=== PATIENT | female | born 2000 | race African-American/Black ===

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

== ENCOUNTER 2022-12-03 10:29 | Emergency (ER) | payer OTHER, SELFPAY ==
[2022-12-03 11:58] LABS: #Monocytes 0.9 thou/uL (0.11-0.59); #Neutrophils 14.4 thou/uL (1.40-6.50); %Basophils 0.2 % (0.0-1.0); %Monocytes 5.6 % (0.0-4.0); %Neutrophils 87.5 % (31.0-61.0); Hematocrit 26.1 % (36.0-47.0); Hemoglobin 7.1 g/dL (12.0-16.0); Mean Corpuscular HGB CONC 27.2 g/dL (32.0-36.0); Mean Corpuscular Volume 69.8 fl (78.0-98.0); Platelet Count 152 10x3/uL (130-400); RBC Distribution Width 33.6 % (11.5-14.5); Red Blood Cell (RBC) Count 3.74 mill/uL (4.00-5.20); White Blood Cell (WBC) Count 16.4 10x3/uL (4.8-10.8)
[2022-12-03 12:23] LABS: ALT (SGPT) 9 U/L (8-55); AST (SGOT) 24 U/L (5-34); Albumin 4.7 g/dL (3.5-5.0); Alkaline Phosphatase 76 U/L (40-100); Anion Gap 17 mmol/L (10-20); BUN (Urea Nitrogen) 6 mg/dL (7.0-18.7); Bilirubin, Total 0.3 mg/dL (0.2-1.2); Calc. Creatinine Clearance 0 mL/min (70-130); Calcium 9.6 mg/dL (7.8-10.44); Carbon Dioxide 19 mmol/L (22-29); Chloride 103 mmol/L (98-107); Estimated GFR 127; Globulin 4.3 g/dL (2.4-3.5); Glucose 86 mg/dL (70-105); Potassium 3.5 mmol/L (3.5-5.1); Sodium 135 mmol/L (136-145)
[2022-12-03 12:47] LABS: Anisocytosis MODERATE=16-30 cells HPF (0-5); CellaVision Operator ID LAB.MJL; Elliptocytes SLIGHT = 2-5 cells HPF (0-1); Hypochromia MODERATE=16-30 cells HPF (0-5); Microcytosis SLIGHT = 6-15 cells HPF (0-5); Ovalocytes SLIGHT = 2-5 cells HPF (0-1); Platelet Adequacy Comment Platelets Normal; Poikilocytosis MODERATE=16-30 cells HPF (0-5); Polychromasia MODERATE = 3-4 cells HPF (0-2); Reflex for Review?? YES; Schistocytes SLIGHT = 2-5 cells HPF (0-1); Tear Drops SLIGHT = 2-5 cells HPF (0-1)
[2022-12-03 13:52] LABS: BHCG - Serum Negative (NEGATIVE); Pregs Control Background? CLEAR/WHITE (CLR/WHITE); Pregs Control Bar Appear? YES (CONTROL BAR)
[2022-12-03 14:08] LABS: Bilirubin Negative (Negative); Blood, Urine Large (Negative); Glucose, Urine (Dipstick) Negative (Negative); Ketone, Urine 40 mg/dL (Negative); Leukocyte Negative (Negative); Nitrite Negative (Negative); Protein, Urine (Dipstick) Negative (Neg-Trace); Specific Gravity, Urine 1.025 (1.005-1.030); Urobilinogen 0.2 mg/dL (Less than 2)
[2022-12-03 14:11] LABS: Clarity Hazy (Clear)
[2022-12-03] MEDS ORDERED: SODIUM CHLORIDE 0.9% IVPB SCH (14:15)
[2022-12-03] MEDS ORDERED: TRANEXAMIC ACID IVPB SCH (14:15)
[2022-12-03 14:18] LABS: Bacteria/HPF 1+ HPF (None Seen); CAUTI Indications for Culture Pelvic or flank pain
[2022-12-03 14:19] LABS: Urine Culture Reflex No No
[2022-12-03 14:31] LABS: Pregnancy Test - Urine (BHCG) Negative (Negative); Pregu Control Background? CLEAR/WHITE (CLR/WHITE); Pregu Control Bar Appear? YES (CONTROL BAR); Specific Gravity 1.025 (1.002-1.036)
== END 2022-12-03 18:55 | disposition home or self-care (01) ==
LOC: ERS 10:29
DX: D50.9 Iron deficiency anemia, unspecified (principal); N93.9 Abnormal uterine and vaginal bleeding, unspecified
CPT/HCPCS: 36415; 36430; 76856; 80053; 81001; 81025; 84703; 85025; 85060; 86850; 86900; 86901; 96365; J3490; P9016

== ENCOUNTER 2023-12-17 08:49 | Emergency (ER) | payer SELFPAY ==
[2023-12-17 10:35] LABS: #Basophils 0.03 10x3/uL (0.0-0.2); %Basophils 0.3 % (0.0-1.0); %Eosinophils 0.3 % (0.0-10.0); %Lymphocytes 14.4 % (21.0-51.0); %Monocytes 6.4 % (0.0-10.0); %Neutrophils 78.3 % (42.0-75.0); Hematocrit 36.4 % (36.0-47.0); Hemoglobin 12.3 g/dL (12.0-16.0); Mean Corpuscular HGB CONC 33.8 g/dL (32.0-36.0); Mean Corpuscular Hemoglobin 29.6 pg (27.0-31.0); Mean Corpuscular Volume 87.5 fL (78.0-98.0); Platelet Count 402 10x3/uL (130-400); RBC Distribution Width 15.6 % (11.5-14.5); Red Blood Cell (RBC) Count 4.16 mill/uL (4.20-5.40)
[2023-12-17 10:43] LABS: BHCG - Serum Negative (NEGATIVE); Pregs Control Background? CLEAR/WHITE (CLR/WHITE); Pregs Control Bar Appear? YES (CONTROL BAR)
[2023-12-17 10:56] LABS: ALT (SGPT) 15 U/L (8-55); AST (SGOT) 15 U/L (5-34); Albumin 3.1 g/dL (3.5-5.0); Alkaline Phosphatase 73 U/L (40-110); Anion Gap 13 mmol/L (10-20); BUN (Urea Nitrogen) 5 mg/dL (7.0-18.7); Bilirubin, Total 0.2 mg/dL (0.2-1.2); Calc. Creatinine Clearance 0 mL/min (70-130); Calcium 8.6 mg/dL (7.8-10.44); Carbon Dioxide 22 mmol/L (22-29); Chloride 106 mmol/L (98-107); Estimated GFR 128; Globulin 4.4 g/dL (2.4-3.5); Glucose 73 mg/dL (70-105); Potassium 2.9 mmol/L (3.5-5.1); Protein, Total 7.5 g/dL (6.0-8.3); Sodium 138 mmol/L (136-145)
[2023-12-17] MEDS ORDERED: Potassium Chloride 20 MEQ TAB ONE (11:48)
[2023-12-17] MEDS ORDERED: Morphine 4 MG/ML VIAL ONE ×2 (11:48→13:50)
[2023-12-17] MEDS ORDERED: Cefepime 1 GM VIAL ONE (12:02)
[2023-12-17] MEDS ORDERED: Sodium Chloride 0.9% 100 ML ONE (12:02)
[2023-12-17] MEDS ORDERED: Vancomycin 1 GM/200 ML (FROZEN) BAG ONE (12:48)
[2023-12-17] MEDS ORDERED: Iopamidol-370 76% 500 ML MDV (1 ML CHARGE) ONE (13:36)
== END 2023-12-17 14:29 | disposition short-term general hospital (02) ==
LOC: ERS 08:49
DX: H70.92 Unspecified mastoiditis, left ear (principal)
CPT/HCPCS: 70481; 80053; 84703; 85025; 93005; 96365; 96367; 96375; 96376; J0692; J2272; J3370-JW; Q9967